=== PATIENT | female | born 1995 | race Caucasian/White ===

== ENCOUNTER 2018-06-02 07:33 | Outpatient (CLI) | payer OTHER ==
[2018-06-02 09:12] LABS: ADD UMIC YES; UR ASCORBIC ACID NEGATIVE (NEGATIVE); UR BACTERIA FEW /HPF (NONE SEEN); UR BILIRUBIN (Dip) NEGATIVE (NEGATIVE); UR BLOOD (Dip) NEGATIVE (NEGATIVE); UR CLARITY SLIGHTLY CLOUDY (CLEAR); UR COLOR YELLOW (YELLOW); UR GLUCOSE (Dip) NEGATIVE (NEGATIVE); UR KETONES (Dip) NEGATIVE (NEGATIVE); UR LEUKOCYTE ESTERASE (Dip) 1+ Leu/ul (NEGATIVE); UR NITRITE (Dip) NEGATIVE (NEGATIVE); UR RBC 2 /HPF (0-5); UR SPECIFIC GRAVITY (Dip) 1.011 (1.003-1.030); UR SQUAMOUS EPITHELIAL CELL FEW /HPF (FEW); UR TOTAL PROTEIN (Dip) NEGATIVE (NEGATIVE); UR UROBILINOGEN (Dip) NEGATIVE (NEGATIVE); UR WBC 4 /HPF (0-5)
== END 2018-06-02 10:10 | disposition home or self-care (01) ==
LOC: OBT 07:33 → L-D 07:33 → OBT 10:10
DX: O26.893 Other specified pregnancy related conditions, third trimester (principal); R10.2 Pelvic and perineal pain; Z3A.37 37 weeks gestation of pregnancy
CPT/HCPCS: 76818; 81001; 87086

== ENCOUNTER 2018-06-17 08:28 | Inpatient (IN) | payer OTHER ==
[2018-06-17 09:32] LABS: ADD UMIC YES; UR ASCORBIC ACID NEGATIVE (NEGATIVE); UR BILIRUBIN (Dip) NEGATIVE (NEGATIVE); UR BLOOD (Dip) 2+ mg/dL (NEGATIVE); UR CLARITY CLEAR (CLEAR); UR COLOR STRAW (YELLOW); UR GLUCOSE (Dip) NEGATIVE (NEGATIVE); UR KETONES (Dip) NEGATIVE (NEGATIVE); UR LEUKOCYTE ESTERASE (Dip) NEGATIVE Leu/ul (NEGATIVE); UR NITRITE (Dip) NEGATIVE (NEGATIVE); UR RBC 23 /HPF (0-5); UR SPECIFIC GRAVITY (Dip) 1.011 (1.003-1.030); UR SQUAMOUS EPITHELIAL CELL FEW /HPF (FEW); UR TOTAL PROTEIN (Dip) NEGATIVE (NEGATIVE); UR UROBILINOGEN (Dip) NEGATIVE (NEGATIVE); UR WBC 2 /HPF (0-5)
[2018-06-17 09:52] LABS: RUPTURE FETAL MEMBRANES POSITIVE (NEGATIVE)
[2018-06-17] MEDS ORDERED: METHYLERGONOVINE 0.2 MG INJ IM (10:00)
[2018-06-17] MEDS ORDERED: CARBOPROST 250 MCG INJ IM (10:00)
[2018-06-17] MEDS ORDERED: OXYTOCIN 30 UNITS/LR 500 ML IV ×2 (10:00)
[2018-06-17] MEDS ORDERED: IBUPROFEN 600 MG TAB PO (10:00)
[2018-06-17] MEDS ORDERED: MISOPROSTOL 200 MCG TAB PR (10:00)
[2018-06-17] MEDS ORDERED: BUTORPHANOL 2 MG INJ IV (10:00)
[2018-06-17] MEDS ORDERED: LIDOCAINE 1% (MPF) 30 ML INJ INJ (10:00)
[2018-06-17 10:24] LABS: ADD MAN DIFF? NO
[2018-06-17 10:43] LABS: BASOPHILS % 0.2 % (0.0-2.0); EOSINOPHILS # 0.1 10^3/ul (0.0-0.5); EOSINOPHILS % 0.4 % (0.0-7.0); HEMOGLOBIN 11.2 g/dl (12.0-16.0); LYMPHOCYTES # 2.3 10^3/ul (0.8-2.9); LYMPHOCYTES % 17.7 % (15.0-51.0); MEAN CORPUSCULAR HEMOGLOBIN 29.9 pg (29.0-33.0); MEAN CORPUSCULAR HGB CONC 32.9 g/dl (32.0-37.0); MEAN CORPUSCULAR VOLUME 90.9 fl (82.0-101.0); MEAN PLATELET VOLUME 12.7 fl (7.4-10.4); MONOCYTE # 0.7 10^3/ul (0.3-0.9); MONOCYTES % 5.6 % (0.0-11.0); NEUTROPHIL # 9.9 10^3/ul (1.6-7.5); NEUTROPHILS % 75.4 % (39.0-77.0); PLATELET COUNT 189 10^3/UL (140-415); RED BLOOD COUNT 3.74 10^6/ul (4.20-5.40); RED CELL DISTRIBUTION WIDTH 14.4 % (11.5-14.5)
[2018-06-17 10:43] LABS: WHITE BLOOD COUNT 13.2 10^3/ul (4.8-10.8)
[2018-06-17 10:44] LABS: INR 0.91; PROTIME 12.4 Sec (11.9-14.9)
[2018-06-17 10:45] LABS: PARTIAL THROMBOPLASTIN TIME 25.5 Sec (23.0-35.0)
[2018-06-17] MEDS: LACTATED RINGER'S 1,000 ML IV ×4 (11:16→23:19)
[2018-06-17 11:21] LABS: HEPATITIS B SURFACE ANTIGEN NEGATIVE (NEGATIVE)
[2018-06-17] MEDS: OXYTOCIN 30 UNITS/LR 500 ML IV (13:14)
[2018-06-17] MEDS ORDERED: FENTAnyl 2MCG/ML-ROPIV 0.2% 100 ML (17:45)
[2018-06-17] MEDS ORDERED: NALOXONE (0.4 MG/ML) INJ IV (18:30)
[2018-06-17] MEDS ORDERED: NALBUPHINE HCL (10 MG/1 ML) INJ IV (18:30)
[2018-06-17] MEDS ORDERED: ONDANSETRON 4 MG INJ IV (18:30)
[2018-06-17 20:42] LABS: RAPID PLASMA REAGIN NONREACTIVE (NR)
[2018-06-17] MEDS ORDERED: AMPICILLIN 2 GM/NS (PMX) 100 ML (20:57)
[2018-06-17] MEDS ORDERED: AMPICILLIN 2 GM IM (21:00)
[2018-06-17] MEDS: AMPICILLIN 2 GM/NS (PMX) 100 ML IV (21:23)
[2018-06-18] MEDS: AMPICILLIN 1 GM/NS (PMX) 50 ML IV ×2 (01:03→04:23)
[2018-06-18] MEDS: FENTAnyl 2MCG/ML-ROPIV 0.2% 100 ML BAG EPI (01:47)
[2018-06-18] MEDS: LACTATED RINGER'S 1,000 ML IV (05:47)
[2018-06-18] MEDS: OXYTOCIN 30 UNITS/LR 500 ML IV (07:54)
[2018-06-18] MEDS ORDERED: OXYTOCIN 30 UNITS/LR 500 ML IV ×2 (10:16→10:30)
[2018-06-18] MEDS: WITCH HAZEL/GLYCERIN PAD PR (10:27)
[2018-06-18] MEDS: BENZOCAINE 20% 56 ML SPRAY TOP (10:27)
[2018-06-18] MEDS: LANOLIN HPA 1 PKT TOP (10:28)
[2018-06-18] MEDS ORDERED: OXYCODONE/ASPIRIN (4.88/325) TAB PO (10:30)
[2018-06-18] MEDS ORDERED: METHYLERGONOVINE 0.2 MG INJ IM (10:30)
[2018-06-18] MEDS ORDERED: CARBOPROST 250 MCG INJ IM (10:30)
[2018-06-18] MEDS ORDERED: MISOPROSTOL 200 MCG TAB PR (10:30)
[2018-06-18] MEDS ORDERED: NACL 0.9% 3 ML SYG IV (10:30)
[2018-06-18] MEDS ORDERED: SENNA/DOCUSATE NA (8.6MG/50MG) TAB PO (10:30)
[2018-06-18] MEDS ORDERED: ZOLPIDEM 5 MG TAB PO (10:30)
[2018-06-18] MEDS: IBUPROFEN 600 MG TAB PO ×3 (11:40→23:03)
[2018-06-18] MEDS: SENNA/DOCUSATE NA (8.6MG/50MG) TAB PO (22:59)
[2018-06-19] MEDS: IBUPROFEN 600 MG TAB PO ×4 (06:10→23:33)
[2018-06-19 08:09] LABS: ADD MAN DIFF? NO
[2018-06-19 08:17] LABS: WHITE BLOOD COUNT 17.4 10^3/ul (4.8-10.8)
[2018-06-19 08:17] LABS: BASOPHIL # 0.1 10^3/ul (0.0-0.1); BASOPHILS % 0.3 % (0.0-2.0); EOSINOPHILS # 0.1 10^3/ul (0.0-0.5); EOSINOPHILS % 0.5 % (0.0-7.0); HEMOGLOBIN 9.9 g/dl (12.0-16.0); LYMPHOCYTES # 2.9 10^3/ul (0.8-2.9); LYMPHOCYTES % 16.5 % (15.0-51.0); MEAN CORPUSCULAR HEMOGLOBIN 30.3 pg (29.0-33.0); MEAN CORPUSCULAR VOLUME 91.7 fl (82.0-101.0); MEAN PLATELET VOLUME 12.6 fl (7.4-10.4); MONOCYTE # 0.8 10^3/ul (0.3-0.9); MONOCYTES % 4.8 % (0.0-11.0); NEUTROPHIL # 13.4 10^3/ul (1.6-7.5); NEUTROPHILS % 77.3 % (39.0-77.0); PLATELET COUNT 169 10^3/UL (140-415); RED BLOOD COUNT 3.27 10^6/ul (4.20-5.40); RED CELL DISTRIBUTION WIDTH 14.6 % (11.5-14.5)
[2018-06-19] MEDS: SENNA/DOCUSATE NA (8.6MG/50MG) TAB PO ×2 (09:00→20:54)
[2018-06-20] MEDS: IBUPROFEN 600 MG TAB PO ×2 (05:40→12:05)
[2018-06-20 08:40] LABS: WHITE BLOOD COUNT 13.1 10^3/ul (4.8-10.8)
[2018-06-20] MEDS: DIPHTH/TET/ACEL PERTUSS (ADULT) 0.5 ML VIAL IM* (09:00)
[2018-06-20] MEDS: SENNA/DOCUSATE NA (8.6MG/50MG) TAB PO (10:13)
== END 2018-06-20 16:19 | disposition home or self-care (01) | DRG 807 ==
LOC: OBT 08:28 → PP1 06-18 09:13 → L-D 08:28 → OBT 09:46 → L-D 09:46
PROC: 10E0XZZ Delivery of Products of Conception, External Approach (ICD-10-PCS; principal; 2018-06-18)
DX: O69.81X0 Labor and delivery complicated by cord around neck, without compression, not applicable or unspecified (principal); Z37.0 Single live birth; Z3A.39 39 weeks gestation of pregnancy
CPT/HCPCS: 36415; 62322; 76815; 76818; 81001; 84112; 85025; 85048; 85610; 85730; 86592; 86850; 86900; 86901; 87340; 96360